=== PATIENT | female | born 1975 | race Caucasian/White ===

== ENCOUNTER 2021-12-10 08:25 | Emergency (ER) | payer OTHER ==
[~2021-12-10] VITALS: Ht 162.6 cm; Wt 95.3 kg
[~2021-12-10 08:25] MED LIST: ASMANEX0.24 G1; COZAAR25 MG; MOTRIN800 MG PO; SINGULAIR10 MG; SYNTHROID125 MCG
[2021-12-10] MEDS ORDERED: BENZONATATE200 M1 PO (11:31)
== END 2021-12-10 11:34 | disposition home or self-care (01) ==
LOC: ER 08:25
DX: R05.9 Cough, unspecified (principal); Z88.1 Allergy status to other antibiotic agents; I10 Essential (primary) hypertension; E03.9 Hypothyroidism, unspecified